=== PATIENT | female | born 1980 | race Caucasian/White ===

== ENCOUNTER → 2025-05-23 | Outpatient (REF) | payer BC ==
[2025-05-25 15:48] LABS: HPV APTIMA Not Detected (Not Detected)
== END ==
LOC: M SFHCWAGY 15:30
PROVIDERS: ATTEND Nurse Practitioner Family
DX: Z12.4 Encounter for screening for malignant neoplasm of cervix (principal)
CPT/HCPCS: 87624; G0123

== ENCOUNTER → 2025-05-23 | Outpatient (CLI) | payer BC, SELFPAY | LOC: M WHC 09:14 | PROVIDERS: ATTEND Nurse Practitioner Family | DX: Z53.9 Procedure and treatment not carried out, unspecified reason (principal) ==